=== PATIENT | male | born 2005 | race Two or more races ===

== ENCOUNTER 2024-02-04 10:19 | Emergency (ER) | payer MEDICAID, OTHER ==
[~2024-02-04] VITALS: Ht 172.7 cm; Wt 79.9 kg
[2024-02-04 10:59] VITALS: BP 120/71; PULSE 72; RESP 17; TEMP 98.2; O2SAT 100
[2024-02-04] MEDS ORDERED: IBUP1TAB5 PO (12:56)
== END 2024-02-04 13:01 | disposition home or self-care (01) ==
LOC: ER 10:19
DX: R51.9 Headache, unspecified (principal); R11.0 Nausea; V89.2XXA Person injured in unspecified motor-vehicle accident, traffic, initial encounter; Y93.89 Activity, other specified; Y92.89 Other specified places as the place of occurrence of the external cause; Y99.8 Other external cause status
CPT/HCPCS: 70450